=== PATIENT | female | born 2000 | race Caucasian/White ===

== ENCOUNTER 2021-06-13 14:02 | Emergency (ER) | payer OTHER, SELFPAY ==
[2021-06-13 14:13] VITALS: BP 137/75; PULSE 100; RESP 14; TEMP 36.7; O2SAT 97; BMI 18.6
[2021-06-13] MEDS: ONDANSETRON 4 MG ODT SL (14:26)
--- NOTE | 2021-06-13 15:25 | DI.CT.S_ITS ---
PROCEDURE: CT ABDOMEN PELVIS W CON INDICATIONS: nausea, vomiting TECHNIQUE: After the administration of IV contrast, axial sections were acquired from the lung bases to the pubic symphysis. Coronal and sagittal reformats were performed. For radiation dose reduction, the following was used: automated exposure control, adjustment of mA and/or kV according to patient size. COMPARISON: None. FINDINGS: Image quality: Excellent. Lung bases: Unremarkable. Heart: No significant findings. ABDOMEN: Liver: Unremarkable. Gallbladder: Unremarkable. Biliary ducts: Unremarkable. Pancreas: Unremarkable. Spleen: Unremarkable. Adrenal Glands: Unremarkable. Kidneys and Ureters: Unremarkable. Stomach and Bowel: Evaluation of the intra-abdominal structures is limited by relative paucity of intra-abdominal fat. Mild gastric wall thickening can be seen proximally. No significant surrounding inflammatory changes are seen. No findings of perforation are seen. No abscess is seen. No dilated loops of small bowel are seen. No significant colonic abnormality is seen. Peritoneum: No abnormal intraperitoneal fluid. No free air. Ventral Wall: No hernia. Abdominal Nodes: No retroperitoneal or mesenteric adenopathy by size criteria. Vessels: Aorta and inferior vena cava are normal in size. PELVIS: Pelvic Organs: The uterus appears normal for age. There is a 3.6 cm right ovarian cyst seen. No adnexal masses are seen. Bladder: Unremarkable. Pelvic Nodes: No enlarged lymph nodes. Miscellaneous: No inguinal hernias are seen. Bones: Unremarkable. IMPRESSION: Mild gastric wall thickening can be seen proximally, which may be related to gastritis or potentially artifact from underdistention. A 3.6 cm right ovarian cyst is incidentally noted. If clinically appropriate, a follow-up pelvic ultrasound could be considered for further evaluation. Dictated by: Ja Meraz M.D. on 06/13/2021 at 17:27 Approved by: Ja Meraz M.D. on 06/13/2021 at 17:29
--- NOTE | 2021-06-13 15:28 | ED.ABDPAIN ---
HPI - Abdominal Pain <Bao Dennis PA-C - Last Filed: 06/13/21 19:00> General Chief Complaint: Dizziness Stated Complaint: Vomiting, dizzy, shaking Time Seen by Provider: 06/13/21 15:11 Source: patient Mode of arrival: Ambulatory History of Present Illness HPI narrative: Patient is a 21-year-old female presents to the ED complaining of nausea and vomiting for the past 5 days. She states that she has had increased fatigue and dizziness and weakness with no improvement in her nausea and vomiting. She also admits to having occasional chills denies any fevers denies any diarrhea. She has diffuse abdominal cramping. No prior history of reported. Patient also has occasional headaches denies any visual disturbances shortness of breath cough congestion Related Data Previous Rx's Medication Instructions Recorded pantoprazole 40 mg tablet,delayed 40 mg PO DAILY #30 tab 06/13/21 release (Protonix) Allergies Allergy/AdvReac Type Severity Reaction Status Date / Time No Known Drug Allergies Allergy Verified 06/13/21 14:15 Review of Systems <Bao Dennis PA-C - Last Filed: 06/13/21 19:00> Review of Systems ROS Unobtainable: All systems reviewed & are unremarkable except as noted in HPI and below Constitutional Constitutional: Denies chills, Denies fatigue, Denies fever(s), Denies frequent falls, Denies lethargy and Denies weakness Eyes Eyes: Denies change in vision, Denies eye discharge, Denies irritation and Denies loss of vision ENT Ears, Nose, Mouth, and Throat: Denies change in voice, Denies dizziness, Denies neck pain, Denies sore throat and Denies throat swelling Cardiovascular Cardiovascular: Denies chest pain, Denies irregular heart rhythm, Denies lightheadedness, Denies palpitations, Denies dyspnea, Denies dyspnea on exertion and Denies orthopnea Respiratory Respiratory: Denies cough, Denies dyspnea, Denies dyspnea on exertion and Denies wheezing Gastrointestinal Gastrointestinal: Reports abdominal pain, Denies change in bowel habits, Denies diarrhea, Reports nausea and Reports vomiting Genitourinary Genitourinary: Denies hematuria, Denies flank pain, Denies urinary incontinence and Denies urinary urgency Musculoskeletal Musculoskeletal: Denies back pain, Denies muscle weakness, Denies neck pain, Denies numbness and Denies tingling Integumentary/Breasts Skin/Breast: Denies pruritus, Denies erythema, Denies rash and Denies wounds Neurologic Neurologic: Denies behavioral changes, Denies confusion, Denies dizziness, Denies frequent falls, Denies loss of vision, Denies numbness, Denies tingling and Denies weakness Psychiatric Psychiatric: Denies anxiety, Denies behavioral changes, Denies confusion, Denies depression, Denies homicidal ideation and Denies suicidal ideation Endocrine Endocrine: Denies fatigue, Denies flushing and Denies palpitations Hematologic/Lymphatic Hematologic/Lymphatic: Denies easy bruising Allergic/Immunologic Allergic/Immunologic: Denies urticaria, Denies throat swelling and Denies wheezing Patient History <Bao Dennis PA-C - Last Filed: 06/13/21 19:00> Social History Smoking Status: Unknown if ever smoked Smoking Status: Unknown if ever smoked alcohol intake frequency: holidays/special occasions only Substance Use Type: does not use Exam <Bao Dennis PA-C - Last Filed: 06/13/21 19:00> Initial Vital Signs Initial Vital Signs: Vital Signs Temperature 98.1 F 06/13/21 14:13 Pulse Rate 100 H 06/13/21 14:13 Respiratory Rate 14 06/13/21 14:13 Blood Pressure 137/75 06/13/21 14:13 Pulse Oximetry 97 06/13/21 14:13 Const General: cooperative, healthy appearing and comfortable Nutritional Appearance: average body habitus and well nourished Orientation: Orientation [facility] Head: normal to inspection, normocephalic and atraumatic Ears: hearing grossly normal bilaterally Nose: external nose normal Face and sinus: normal facial exam Resp Effort & Inspection: normal respiratory effort and able to speak in complete sentences Auscultation: clear to auscultation bilaterally Cardio Palpation: normal PMI Rate: regular rate Rhythm: regular rhythm Heart Sounds: S1 normal and S2 normal GI Inspection: normal to inspection Palpation: soft and no hepatosplenomegaly Percussion: normal to percussion Auscultation: normal bowel sounds Course <Bao Dennis PA-C - Last Filed: 06/13/21 19:00> Orders Ordered: ED Orders 06/13/21 15:25 CT abdomen pelvis w con Stat 06/13/21 16:00 CBC Auto Diff [Complete Blood Count AUTO DIFF] Stat CMP [Comprehensive Metabolic Panel] Stat Lipase Stat 06/13/21 17:43 Test Serum,Qual Stat 06/13/21 18:30 UA Complete [Urinalysis and Microscopic] Stat Discontinued Medications Sodium Chloride (Normal Saline 0.9%) 1,000 mls @ 1,000 mls/hr IV BOLUS ONE Stop: 06/13/21 16:26 Last Infusion: 06/13/21 17:54 Dose: 0 mls/hr Documented by: Admin: 06/13/21 16:10 Dose: 1,000 mls/hr Documented by: LINH Sodium Chloride (Normal Saline 0.9%) 1,000 mls @ 1,000 mls/hr IV BOLUS ONE Stop: 06/13/21 18:31 Last Admin: 06/13/21 17:36 Dose: 1,000 mls/hr Documented by: LINH Ondansetron HCl (Ondansetron 4 Mg Odt) 4 mg SL NOW ONE Stop: 06/13/21 14:18 Last Admin: 06/13/21 14:26 Dose: 4 mg Documented by: DREW Ondansetron HCl (Ondansetron 4 Mg/2 Ml Inj) 4 mg IV NOW ONE Stop: 06/13/21 15:28 Last Admin: 06/13/21 15:59 Dose: 4 mg Documented by: LINH Vital Signs Vital signs: Vital Signs - 8 hr 06/13/21 14:13 06/13/21 16:04 06/13/21 16:05 Temperature 98.1 F Pulse Rate 100 H 76 76 Respiratory Rate 14 Blood Pressure 137/75 114/70 Pulse Oximetry 97 99 99 06/13/21 16:30 06/13/21 18:47 Temperature 98.7 F Pulse Rate 77 79 Respiratory Rate 18 Blood Pressure 113/74 Pulse Oximetry 99 98 MDM - Abdominal Pain <Bao Dennis PA-C - Last Filed: 06/13/21 19:00> Differential Diagnosis Differential diagnosis: Likely other Lab Data Result diagrams: 06/13/21 16:00 06/13/21 16:00 Labs: Lab Results 02/04/22 02/04/22 02/04/22 Range/Units 16:00 16:00 17:43 WBC 5.6 (4.5-11.0) X10^3/uL RBC 4.47 (4.0-5.2) X10^6/uL Hgb 14.0 (12.0-16.0) g/dL Hct 40.1 (36-46) % MCV 89.7 (80-100) fL MCH 31.3 (26-34) PG MCHC 34.9 (30-36) % RDW 13.0 (11.6-14.8) % Plt Count 215 (150-400) X10^3/uL Neut % (Auto) 56.8 (50-75) % Lymph % (Auto) 35.4 (25-40) % [place] % (Auto) 7.2 (3-14) % Eos % (Auto) 0.1 L (2-4) % Baso % (Auto) 0.5 (0-2) % Neut # (Auto) 3200 (7834-8182) /uL Lymph # (Auto) 2000 (0389-6430) /uL [place] # (Auto) 400 (0-900) /uL Eos # (Auto) 0 (0-450) /uL Baso # (Auto) 0 (0-100) /uL Sodium 140 (137-145) mmol/L Potassium 3.8 (3.4-5.1) mmol/L Chloride 105 (98-107) mmol/L Carbon Dioxide 24 (22-32) mmol/L BUN 8 (7-17) mg/dL Creatinine 0.70 (0.52-1.04) mg/dL Estimated GFR > 60.0 (>60) mL/min BUN/Creatinine Ratio 11.4 (6-22) Glucose 86 (70-100) mg/dL Calcium 9.6 (8.4-10.2) mg/dL Total Bilirubin 0.7 (0.2-1.3) mg/dL AST 27 (14-36) IU/L ALT 11 (<35) IU/L Alkaline Phosphatase 47 (38-126) U/L Total Protein 8.3 H (6.3-8.2) g/dL Albumin 4.8 (3.5-5.0) g/dL Globulin 3.5 (1.7-4.1) g/dL Albumin/Globulin Ratio 1.4 (1.0-2.8) Lipase 69 (23-300) U/L Serum , Qual Negative (Negative) Urine Color Urine Appearance Urine pH (4.5-8.0) Ur Specific [place] (1.000-1.035) Urine Protein (Negative) Urine Glucose (UA) (Negative) g/dL Urine Ketones (NEGATIVE) Urine Occult Blood (Negative) Urine Nitrate (Negative) Urine Bilirubin (NEGATIVE) Urine Urobilinogen (0.2) E.U./dL Ur Leukocyte Esterase (NEGATIVE) Urine RBC (0-5/HPF) Urine WBC (0-5/HPF) Ur Squamous Epith Cells (0-5/HPF) Ur Transition Epith Cell (0-5/HPF) Urine Bacteria (None) Ur Culture Indicated? 06/13/21 Range/Units 18:30 WBC (4.5-11.0) X10^3/uL RBC (4.0-5.2) X10^6/uL Hgb (12.0-16.0) g/dL Hct (36-46) % MCV (80-100) fL MCH (26-34) PG MCHC (30-36) % RDW (11.6-14.8) % Plt Count (150-400) X10^3/uL Neut % (Auto) (50-75) % Lymph % (Auto) (25-40) % [place] % (Auto) (3-14) % Eos % (Auto) (2-4) % Baso % (Auto) (0-2) % Neut # (Auto) (6197-3927) /uL Lymph # (Auto) (0242-1382) /uL [place] # (Auto) (0-900) /uL Eos # (Auto) (0-450) /uL Baso # (Auto) (0-100) /uL Sodium (137-145) mmol/L Potassium (3.4-5.1) mmol/L Chloride (98-107) mmol/L Carbon Dioxide (22-32) mmol/L BUN (7-17) mg/dL Creatinine (0.52-1.04) mg/dL Estimated GFR (>60) mL/min BUN/Creatinine Ratio (6-22) Glucose (70-100) mg/dL Calcium (8.4-10.2) mg/dL Total Bilirubin (0.2-1.3) mg/dL AST (14-36) IU/L ALT (<35) IU/L Alkaline Phosphatase (38-126) U/L Total Protein (6.3-8.2) g/dL Albumin (3.5-5.0) g/dL Globulin (1.7-4.1) g/dL Albumin/Globulin Ratio (1.0-2.8) Lipase (23-300) U/L Serum , Qual (Negative) Urine Color Yellow Urine Appearance Clear Urine pH 5.5 (4.5-8.0) Ur Specific [place] 1.015 (1.000-1.035) Urine Protein Negative (Negative) Urine Glucose (UA) Negative (Negative) g/dL Urine Ketones 2+ H (NEGATIVE) Urine Occult Blood Trace-lysed (Negative) Urine Nitrate Negative (Negative) Urine Bilirubin Negative (NEGATIVE) Urine Urobilinogen 0.2 (0.2) E.U./dL Ur Leukocyte Esterase Negative (NEGATIVE) Urine RBC 0-1/hpf (0-5/HPF) Urine WBC 1-5/hpf (0-5/HPF) Ur Squamous Epith Cells 5-10 /hpf H (0-5/HPF) Ur Transition Epith Cell 1-5/hpf (0-5/HPF) Urine Bacteria Moderate (10-30) H (None) Ur Culture Indicated? Cult not indicated Imaging Data CT scan - abdomen/pelvis: Radiologist's Impression: PROCEDURE:? CT ABDOMEN PELVIS W CON ? INDICATIONS:? nausea, vomiting ? TECHNIQUE:? After the administration of IV contrast, axial sections were acquired from the lung bases to the pubic symphysis.? Coronal and sagittal reformats were performed.? For radiation dose reduction, the following was used:? automated exposure control, adjustment of mA and/or kV according to patient size. ? COMPARISON:? None. ? FINDINGS:? Image quality:? Excellent.? ? Lung bases:? Unremarkable.? ? Heart:? No significant findings. ? ? ABDOMEN: Liver:? Unremarkable.? ? Gallbladder:? Unremarkable.? ? Biliary ducts:? Unremarkable.? ? Pancreas:? Unremarkable.? ? Spleen:? Unremarkable.? ? Adrenal Glands:? Unremarkable.? ? Kidneys and Ureters:? Unremarkable.? ? ? Stomach and Bowel:? Evaluation of the intra-abdominal structures is limited by relative paucity of intra-abdominal fat.? Mild gastric wall thickening can be seen proximally.? No significant surrounding inflammatory changes are seen.? No findings of perforation are seen.? No abscess is seen. No dilated loops of small bowel are seen.? No significant colonic abnormality is seen. Peritoneum:? No abnormal intraperitoneal fluid.? No free air.? ? Ventral Wall: ? No hernia.? Abdominal Nodes:? No retroperitoneal or mesenteric adenopathy by size criteria.? Vessels:? Aorta and inferior vena cava are normal in size.? ? PELVIS: Pelvic Organs:? The uterus appears normal for age.? There is a 3.6 cm right ovarian cyst seen.? No adnexal masses are seen.? Bladder:? Unremarkable.? ? Pelvic Nodes: No enlarged lymph nodes.? Miscellaneous: No inguinal hernias are seen. ? ? ? Bones:? Unremarkable.? IMPRESSION:? ? Mild gastric wall thickening can be seen proximally, which may be related to gastritis or potentially artifact from underdistention. ? A 3.6 cm right ovarian cyst is incidentally noted.? If clinically appropriate, a follow-up pelvic ultrasound could be considered for further evaluation. ? ? Dictated by: Ja Meraz M.D. on 06/13/2021 at 17:27 ? ? Approved by: Ja Meraz M.D. on 06/13/2021 at 17:29?? [facility] Narrative Medical decision making narrative: Patient was evaluated today for nausea and vomiting with some upper epigastric pain. She had no improvement over the last 5 days and has had increased fatigue. CT scan demonstrates evidence of gastritis which is consistent with her symptoms and she will need to be started on a PPI. She responded well to IV fluids. She is okay to be discharged home she needs to be on once daily PPI and follow-up with PCP in 2 weeks. Discharge Plan Departure Patient Disposition: Home Clinical Impression: Gastritis Instructions: DI for Gastritis Activity Restrictions/Additional Instructions: You were seen today for your nausea and vomiting and increased fatigue. Your workup today revealed evidence of gastritis which a once daily PPI would likely alleviate the symptoms. I would recommend follow-up with your primary care doctor in 2 weeks unless symptoms continue and upper GI series would be advised. You can return to the emergency room if symptoms become worse. A prescription for Protonix was sent electronically to the pharmacy of your preference. Prescriptions: New pantoprazole [Protonix] 40 mg tablet,delayed release (DR/EC) 40 mg PO DAILY Qty: 30 0RF Referrals: Miscellaneous,Doctor, MD [Primary Care Provider] -
[2021-06-13] MEDS: ONDANSETRON 4 MG/2 ML INJ IV (15:59)
[2021-06-13 16:04] VITALS: PULSE 76; O2SAT 99
[2021-06-13 16:05] VITALS: BP 114/70; PULSE 76; O2SAT 99
[2021-06-13 16:10] LABS: Add Manual Diff / Slide Review NO; Basophils Absolute Auto 0 /uL (0-100); Basophils Percent Auto 0.5 % (0-2); Eosinophils Absolute Auto 0 /uL (0-450); Eosinophils Percent Auto 0.1 % (2-4); Hematocrit 40.1 % (36-46); Lymphocytes Absolute Auto 2000 /uL (1100-4500); Lymphocytes Percent Auto 35.4 % (25-40); Mean Corpuscular HGB Conc 34.9 % (30-36); Mean Corpuscular Hemoglobin 31.3 PG (26-34); Mean Corpuscular Volume 89.7 fL (80-100); Monocytes Absolute Auto 400 /uL (0-900); Monocytes Percent Auto 7.2 % (3-14); Neutrophils Absolute Auto 3200 /uL (1500-7000); Neutrophils Percent Auto 56.8 % (50-75); Platelet Count 215 X10^3/uL (150-400); Red Blood Cell Count 4.47 X10^6/uL (4.0-5.2); White Blood Cell Count 5.6 X10^3/uL (4.5-11.0)
[2021-06-13] MEDS: SODIUM CHLORIDE 0.9% 1,000 ML 1000 ML IV ×2 (16:10→17:36)
[2021-06-13 16:22] LABS: Alanine Aminotransferase 11 IU/L (<35); Albumin 4.8 g/dL (3.5-5.0); Albumin Globulin Ratio 1.4 (1.0-2.8); Alkaline Phosphatase 47 U/L (38-126); Aspartate Aminotransferase 27 IU/L (14-36); BUN Creatinine Ratio 11.4 (6-22); Bilirubin Total 0.7 mg/dL (0.2-1.3); Blood Urea Nitrogen 8 mg/dL (7-17); Calcium 9.6 mg/dL (8.4-10.2); Carbon Dioxide 24 mmol/L (22-32); Chloride 105 mmol/L (98-107); Estimated Glomerular Filt Rate > 60.0 mL/min (>60); Globulin 3.5 g/dL (1.7-4.1); Glucose 86 mg/dL (70-100); HEMOLYSIS 34 (0-50); Lipase 69 U/L (23-300); Potassium 3.8 mmol/L (3.4-5.1); Sodium 140 mmol/L (137-145); Total Protein 8.3 g/dL (6.3-8.2)
[2021-06-13 16:30] VITALS: PULSE 77; O2SAT 99
[2021-06-13 18:01] LABS: Pregnancy Test Serum,Qual Negative (Negative)
[2021-06-13 18:33] LABS: Appearance Urine UA CLEAR; Bilirubin Urine UA NEGATIVE (NEGATIVE); Color Urine UA YELLOW; Glucose Urine UA NEGATIVE (Negative); Ketones Urine UA 2+ (NEGATIVE); Leukocyte Esterase Urine UA NEGATIVE (NEGATIVE); Nitrite Urine UA NEGATIVE (Negative); Occult Blood Urine UA TRACE-LYSED (Negative); Protein Urine UA NEGATIVE (Negative); Specific Gravity Urine UA 1.015 (1.000-1.035); Urobilinogen Urine UA 0.2 E.U./dL (0.2)
[2021-06-13 18:42] LABS: pH Urine UA 5.5 (4.5-8.0)
[2021-06-13 18:43] LABS: RBC Urine 0-1/HPF (0-5/HPF); Transitional Epi Cells Urine 1-5/HPF (0-5/HPF); WBC Urine 1-5/HPF (0-5/HPF)
[2021-06-13 18:44] LABS: Bacteria Urine Moderate (10-30); Culture Indicated Urine Cult Not Indicated; Squamous Epithelial Cell Urine 5-10 /HPF (0-5/HPF)
[2021-06-13 18:47] VITALS: BP 113/74; PULSE 79; RESP 18; TEMP 37.1; O2SAT 98
== END 2021-06-13 19:15 | disposition home or self-care (01) ==
PROVIDERS: Emergency Provider Physician Assistant
DX: K29.70 Gastritis, unspecified, without bleeding (principal); R51.9 Headache, unspecified
CPT/HCPCS: 36415; 74177; 80053; 81001; 83690; 84703; 85025; 96361; 96374; 99284; J2405